=== PATIENT | male | born 1985 | race Caucasian/White ===

== ENCOUNTER 2021-11-29 06:23 | Emergency (ER) | payer BC, OTHER ==
--- NOTE | 2021-11-29 06:40 | ED Physician Documentation ---
PD HPI HEENT - Stated complaint Stated Complaint: LT EAR PX - Chief complaint Chief Complaint: Heent - History obtained from History obtained from: Patient - History of Present Illness Timing - onset: How many days ago (2) Timing - duration: Days (2) Timing - details: Gradual onset, Still present Location: Left ear, Other (left side of head around ear area.) Worsens: Position (feels worse lying down on side.) Associated symptoms: Other (did not notice decreased hearing, nor ringing.). No: Fever, Congestion, Facial swelling Similar symptoms before: Has not had sx before Recently seen: Not recently seen Review of Systems Constitutional: denies: Fever, Chills, Myalgias Ears: reports: Ear pain. denies: Loss of hearing, Tinnitus/ringing Nose: denies: Rhinorrhea / runny nose, Sinus pressure / pain Throat: denies: Sore throat Respiratory: denies: Cough GI: denies: Nausea, Vomiting Skin: denies: Rash, Lesions Musculoskeletal: denies: Neck pain Neurologic: denies: Altered mental status, Head injury PD PAST MEDICAL HISTORY - Past Medical History Past Medical History: No Cardiovascular: None Respiratory: None Endocrine/Autoimmune: None - Past Surgical History Past Surgical History: No - Present Medications Home Medications: Ambulatory Orders Medication Instructions Recorded Confirmed Oxycodone HCl/Acetaminophen 1 each PO Q6H PRN #14 tablet 11/29/21 [Percocet 5-325 mg Tablet] Valacyclovir HCl [Valtrex] 1,000 mg PO TID 5 Days #15 tablet 11/29/21 dexAMETHasone [Decadron] 4 mg PO DAILY #5 tablet 11/29/21 - Allergies Allergies/Adverse Reactions: Allergies Allergy/AdvReac Type Severity Reaction Status Date / Time No Known Drug Allergies Allergy Verified 11/29/21 06:33 - Social History Does the pt smoke?: No Smoking Status: Never smoker Does the pt drink ETOH?: Yes Does the pt have substance abuse?: No - Immunizations Immunizations are current?: Yes - POLST Patient has POLST: No PD ED PE NORMAL - Vitals Vital signs reviewed: Yes - General General: Alert and oriented X 3, Well developed/nourished, Other (appears in pain in waves, with wincing intermittently. Holding hand to left pentecostal area. ) - HEENT HEENT: PERRL, EOMI, Ears normal (right ear and canal normal. Left canal appears normal, with some moderate wax, but not occluding the canal. Portion of TM visible appears normal. ), Moist mucous membranes, Pharynx benign, Other (periauricular left side there are faint clusters of finely bumpy rash preauricular and lower parietal area. No tenderness nor redness at mastoid area. 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 Does not seem migraine classic. Has sharp pain and there seems to be faint patchy bumpy rash in area, so most likely developing shingles. Does not seem meningitic.), d/w patient Departure - Departure Disposition: 01 Home, Self Care Clinical Impression: Left-sided headache Condition: Stable Record reviewed to determine appropriate education?: Yes Instructions: ED Cephalgia Unspecified Prescriptions: dexAMETHasone [Decadron] 4 mg PO DAILY #5 tablet Oxycodone HCl/Acetaminophen [Percocet 5-325 mg Tablet] 1 each PO Q6H PRN #14 tablet PRN Reason: pain Valacyclovir HCl [Valtrex] 1,000 mg PO TID 5 Days #15 tablet Comments: This sounds likely to be either a version of a migraine headache called cluster headache or has the character of a nerve irritation type of headache. I am wondering if this is a early presentation or symptoms of developing shingles. At this point I would have you take since Decadron steroid anti-inflammatory daily for the next 5 days in conjunction with Inge acyclovir antiviral medicine 3 times a day for the next 5 days as well. Additionally you can continue some Advil for pain 3 times a day and add Tylenol and/or oxycodone every 4-6 hours if needed for pain. See if this improves well through the day and into tomorrow and resolves over the next few days. Return if worsening or any other symptoms develop other than perhaps a rash in the area. I transmitted your prescriptions to [facility] in [place]. I am prescribing a short course of narcotic pain medication for you. These are potentially dangerous and addictive medications that should be used carefully. These medications may constipate you. Take an [id number] stool softener such as docusate twice daily with plenty of water while taking these medications. If you go 24 hours without a bowel movement, take [id number] MiraLAX, per package instructions. Do not drink or drive while taking these medications. If you received narcotic or sedating medications while in the emergency department do not drive for 24 hours. Store this medication in a safe, secure place and out of reach of children. It is a violation of federal law to give or sell this medication to another person or to use in a manner other than prescribed. The ED will not refill narcotic prescriptions, including prescriptions lost or stolen. You can dispose of unwanted medications at the [facility]'s office or at several pharmacies such as [facility]. Forms: Activity restrictions
[2021-11-29] MEDS ORDERED: valACYclovir 500 MG TABLET PO STA (06:54)
[2021-11-29] MEDS ORDERED: HYDROmorphone 1 MG/ML CARPUJECT IM STA (06:54)
[2021-11-29] MEDS ORDERED: CHERRY SYRUP 10 ML UDC PO ONE (06:54)
[2021-11-29] MEDS ORDERED: DEXAMETHASONE 10 MG/ML VIAL PO STA (06:54)
[2021-11-29] MEDS ORDERED: KETOROLAC 30 MG/ML VIAL IM STA (06:54)
[2021-11-29] MEDS ORDERED: ACETAMINOPHEN 325 MG TABLET PO STA (06:55)
[2021-11-29 07:46] VITALS: BP 141/100
== END 2021-11-29 07:40 | disposition home or self-care (01) ==
LOC: ED 06:23
DX: R51.9 Headache, unspecified (principal); R21 Rash and other nonspecific skin eruption
CPT/HCPCS: 96372; 99283; A9270; J1170